=== PATIENT | male | born 1970 | race Caucasian/White ===

== ENCOUNTER 2022-02-04 09:47 | Outpatient (CLI) | payer MEDICARE, SELFPAY ==
--- NOTE | 2022-02-04 10:17 | ECG_ITS ---
Measurements Intervals Shirley Rate: 91 P: 31 TN: 202 QRS: 7 QRSD: 94 T: 40 QT: 343 QTc: 423 Interpretive Statements SINUS RHYTHM WITH SINUS ARRHYTHMIA INCOMPLETE RIGHT BUNDLE BRANCH BLOCK BASELINE ARTIFACT- II, III, AVR, AVL, AVF BORDERLINE ECG NO PREVIOUS ECG AVAILABLE FOR COMPARISON Electronically Signed On 02-04-2022 13:44:10 CDT by Micah Duran D.O.
[2022-02-04 10:52] LABS: Phenytoin Dilantin < 3 ug/mL (10-20)
== END 2022-02-04 09:48 | disposition home or self-care (01) ==
LOC: ANHSURGERY 09:58
PROVIDERS: Anesthesiology; PCP Internal Medicine; Visit Provider Neurological Surgery
DX: G40.909 Epilepsy, unspecified, not intractable, without status epilepticus (principal); I10 Essential (primary) hypertension; G89.4 Chronic pain syndrome; Z01.818 Encounter for other preprocedural examination; I45.10 Unspecified right bundle-branch block
CPT/HCPCS: 36415; 80185; 86850; 86900; 86901; 93005

== ENCOUNTER 2022-02-05 00:05 | Day surgery (SDC) | payer MEDICARE, SELFPAY ==
[2022-01-30 15:19] VITALS: BMI 27.3
--- NOTE | 2022-01-30 15:30 | PC.NURSE ---
Report to the Outpatient Waiting Room, entrance under the green pavilion located off [facility], at time 6:00 on date 02/05/22. OR Time: 7:30. Time changes happen often and if your time is changed the preop area will call you the afternoon before. - You and your visitor will be asked to self-screen and do not enter if you have any COVID symptoms. - Only one visitor and NO children visitors are allowed at this time. ONCE YOU ARE SETTLED IN YOUR ROOM FOR YOUR OVERNIGHT STAY, YOU MAY HAVE 2 VISITORS AT A TIME - The patient visitor is requested to leave or wait in car when not with patient due to restrictions. - A mask is required within the hospital. Patients may have clear liquids (water, carbonated beverages, clear teas, apple juice) until 3 hours prior to surgery (4:30) with a maximum of 20 ounces. - No food from midnight until time of surgery Take the following medications with a SIP of water the morning of surgery: DILANTIN, METOPROLOL Medications to discontinue per physician: PLAVIX Date to take last dose: CALL DR. DOWELL OFFICE TO ASK ABOUT STOPPING Please no make-up, nail chadian, hairspray, perfume, deodorant, or body powder the day of surgery. No jewelry (including any body piercings) or valuables the day of surgery, leave them at home. Please take a shower or bath the night before, or the morning of, surgery with an antibacterial soap. Wear comfortable, loose fitting clothing. - Jewelry must be removed prior to entering the operating room. Rings and piercings that are not removed may be cut off. - The hospital will not accept responsibility for valuables. - Please leave all valuables, including medications, at home the day of surgery. If you are going home after surgery, a licensed buggy driver must drive you home. - NO public transportation without another adult. - We recommend that an adult stay with you for 24 hours following discharge. - We also recommend that you do not drive, make important decision, drink alcoholic beverages, or take any drugs that were not prescribed by your health care provider for at least 24 hours after your discharge time. Follow any additional instructions given to you from your surgeon. If you or anyone in your household have experienced Covid symptoms in the past week, please notify your surgeon or the nurse liaison at the phone number below for possible testing. Telephone instructions given to PT - YEN PARSON and asked if any additional questions and then verbalized understanding. Patient advised to call surgeon office or pre surgery nurse liaison [phone] if any additional questions.
--- NOTE | 2022-02-04 11:30 | WPDANESEPPF ---
Anes - Initial Pre Proc Eval Procedure: Operation Date: 02/05/22 07:30 Proposed Procedures p Removal and Replacement Dorsal Column Stimulator Generator [employer] - Bert Dejesus MD Date/Time: 02/04/22 11:30 Surgeon: Bert Dejesus MD Pre Op Diagnosis: chronic pain syndrome, chronic leg pain Patient Data Age: 51 Gender: M Height: 1.73 m Weight: 81.65 kg Allergies Allergy/AdvReac Type Severity Reaction Status Date / Time No Known Allergies Allergy Verified 02/05/22 06:38 Home Medications Medication Instructions Recorded Confirmed Type atorvastatin 80 mg tablet 80 mg PO HS 01/30/22 02/05/22 History clopidogrel 75 mg tablet 75 mg PO DAILY 01/30/22 02/05/22 History esomeprazole magnesium 20 mg 20 mg PO BID 01/30/22 02/05/22 History capsule,delayed release (Nexium) metoprolol succinate 50 mg 50 mg PO DAILY 01/30/22 02/05/22 History tablet,extended release 24 hr phenytoin sodium extended 100 mg 100 mg PO QID 01/30/22 02/05/22 History capsule Patient hx anesthesia problems: none Family hx anesthesia problems: none Results Review: All pre-operative results and documents have been reviewed as part of the pre-operative evaluation. [facility] Past Medical History Medical History (Updated 02/04/22 @ 11:32 by Fabio Woods MD) Back pain CAD (coronary artery disease) HTN (hypertension) Hx of myocardial infarction Hyperlipidemia Migraine Seizure last 2017 Surgical History Surgical History (Updated 02/04/22 @ 11:32 by Fabio Woods MD) History of coronary artery stent placement Social History Social History Smoking packs per day: 1 Smoking cigarettes per day: 20.0 Years smoked: 10 Smoking pack-years: 10.00 Smoking status: Former smoker Tobacco type: cigarettes Smoking end date: 05/19/01 Alcohol intake: never Substance use: current Substance use type: marijuana Living arrangements: with family Spiritual care concerns: No Anes - Eval Final PreProcedure Day of Procedure 02/04/22 11:30 Patient weight: overweight Heart: regular rate and rhythm Lungs: clear to auscultation and normal air movement Airway: Mallampati scale class II Neurological: alert and oriented Last oral intake: >/= 8 hours ASA classification: III Emergent: no Anesthetic plan: proceed Anesthesia type and monitoring: general ETT Results Review: All pre-operative results and documents have been reviewed as part of the pre-operative evaluation. Informed Consent: The patient's anesthetic plan and its attendant risks and benefits were discussed with the patient/family/POA. Questions were solicited and answers provided to the satisfaction of the patient/family/POA.
[2022-02-05] VITALS (7 sets, daily range): BP systolic 119–137; BP diastolic 80–97; PULSE 59–92; RESP 14–19; TEMP 36.4–36.5; O2SAT 92–100
[2022-02-05] MEDS: LACTATED RINGERS 1,000 ML 30 ML IV CONT (07:08)
--- NOTE | 2022-02-05 07:36 | PM.IMHP ---
H&P: HPI History of Present Illness Date/Time: 02/05/22 07:36 Chief Complaint: Back and leg pain Narrative: Mr. Diana is a 51-year-old gentleman with a dorsal column stimulator that requires a battery change because of end of life. He has not changed appreciably since we last saw him. He does not report specific muscle group weakness or dermatomal numbness. He is not having bowel or bladder difficulty. Review of Systems Review of Systems: Patient denies shortness of breath, cough, fever, chills, nausea, vomiting, weight loss, weight gain, chest pain, dysuria. He has back and leg pain. His review of systems is otherwise negative on 12 systems except as noted above. [facility] Past Medical History Medical History Back pain CAD (coronary artery disease) HTN (hypertension) Hx of myocardial infarction Hyperlipidemia Migraine Seizure last 2017 Surgical History Surgical History History of coronary artery stent placement Social History Social History Smoking packs per day: 1 Smoking cigarettes per day: 20.0 Years smoked: 10 Smoking pack-years: 10.00 Smoking status: Former smoker Tobacco type: cigarettes Smoking end date: 05/19/01 Alcohol intake: never Substance use: current Substance use type: marijuana Living arrangements: with family Spiritual care concerns: No Meds Home Medications and Allergies Home Medications Medication Instructions Recorded Confirmed Type atorvastatin 80 mg tablet 80 mg PO HS 01/30/22 02/05/22 History clopidogrel 75 mg tablet 75 mg PO DAILY 01/30/22 02/05/22 History esomeprazole magnesium 20 mg 20 mg PO BID 01/30/22 02/05/22 History capsule,delayed release (Nexium) metoprolol succinate 50 mg 50 mg PO DAILY 01/30/22 02/05/22 History tablet,extended release 24 hr phenytoin sodium extended 100 mg 100 mg PO QID 01/30/22 02/05/22 History capsule Allergies Allergy/AdvReac Type Severity Reaction Status Date / Time No Known Allergies Allergy Verified 02/05/22 06:38 Vital Signs Vital Signs - 24 hr 02/05/22 07:14 Temperature 97.7 F Pulse Rate 92 Respiratory Rate 16 Blood Pressure 128/95 H Pulse Oximetry 99 Oxygen Delivery Room Air Exam Neuro: Other: Strength is normal the bilateral lower extremities to direct confrontation. Sensation is intact to light touch throughout the lower extremities. Clear to auscultation. Regular rate and rhythm Assessment and Plan Assessment and plan (1) Chronic back pain: Code(s): M54.9 - Dorsalgia, unspecified; G89.29 - Other chronic pain Status: Acute (2) Chronic leg pain: Code(s): M79.606 - Pain in leg, unspecified; G89.29 - Other chronic pain Status: Acute Plan Mr. Diana is a 51-year-old gentleman with back and leg pain with a dorsal column stimulator the requires a battery change. I described to him again that operation, its risks, potential benefits, the operative and postoperative course in detail and answered all his questions personally. He indicates understanding and elects to proceed with that operation.
--- NOTE | 2022-02-05 07:38 | WPDHPUPDATE1 ---
History and Physical Update Update Date/Time: 02/05/22 07:38 History and Physical has been reviewed, including an updated exam of the patient. There are NO changes in the patient's condition. Risks, benefits, and alternatives have been discussed and questions answered. Patient agrees to proceed with procedure.
[2022-02-05] MEDS: ceFAZolin 2 GM/D5W 50 ML 2 GM/50 ML BAG IVPB (07:46)
[2022-02-05] MEDS: LIDO 1%/EPINEPHRINE 1:100,000 20 ML VIAL 10 ML INFILTRATE (08:21)
[2022-02-05] MEDS: VANCOMYCIN HCL 1,000 MG VIAL 1000 MG TOPICAL (08:22)
--- NOTE | 2022-02-05 08:22 | W.PM.PROC2 ---
Procedure Note - Detailed Date of Procedure 02/05/22 Pre-op Diagnosis chronic pain syndrome, chronic leg pain Post-op Diagnosis Same Procedure Performed Removal and replacement of dorsal column stimulator generator Surgeon Bert Dejesus MD [employer]visor Sebastián Anesthesia General Indications Mr. Diana is a 51-year-old gentleman with chronic back and leg pain that responded dorsal column stimulation presents for removal and replacement of his generator which has reached end of life. Description of Procedure Mr. Diana was brought to the operating room in the supine position, was sedated, intubated and placed under general anesthesia in routine fashion. He was then turned into the prone position on a Mil frame. The operation his back was examined marked for incision prepped and draped in routine sterile fashion. Incision was marked over the previous incisions transversely above the right buttock and longitudinally in the midline in the thoracic spine. These areas were injected with 0.5% lidocaine with [id number] epinephrine. Intravenous antibiotics given prior to incision. Incision was made at the transverse buttock incision with a 10 blade scalpel. Bovie cautery was used to come through the soft tissue and discovered and removed the generator. The generator was removed from the wires using a small screwdriver for that purpose. A new generator was attached to the wires and sick and they were secured in position using the small screwdriver. Impedance testing was carried out to confirm good connectivity which was confirmed. The generator was then replaced in the pocket after copious irrigation with bacitracin irrigation along with excess wire coiled up underneath the device and vancomycin impregnated pellets. The wound was then closed in layered fashion with 3-0 Vicryl interrupted sutures in the dermis and a running 4-0 Monocryl subcuticular stitch in the skin was dressed Dermabond. The patient was then allowed to wake up in the operating room was taken to the recovery room in stable condition. There were no immediate complications of this operation. All counts were reported correct in the case. Blood loss was minimal. The patient was neurologically at his baseline postoperatively. Implants New dorsal column stimulator generator, [employer] Estimated Blood Loss 1 IV Fluids 500 Complications None Disposition PACU
[2022-02-05] MEDS: HEMOSTATIC MATRIX (SURGIFLO with THROMBIN) KIT 1 KIT XX (08:24)
[2022-02-05] MEDS: oxyCODONE HCL (*CRX) 5 MG TAB IR PO (09:49)
== END 2022-02-05 10:10 | disposition home or self-care (01) ==
PROVIDERS: PCP Internal Medicine; Visit Provider Neurological Surgery
PROC: (CPT 63685; principal; 2022-02-05 07:30)
DX: M54.9 Dorsalgia, unspecified (principal); M79.606 Pain in leg, unspecified; G89.4 Chronic pain syndrome; I25.10 Atherosclerotic heart disease of native coronary artery without angina pectoris; I10 Essential (primary) hypertension; I25.2 Old myocardial infarction; E78.5 Hyperlipidemia, unspecified; G40.909 Epilepsy, unspecified, not intractable, without status epilepticus; Z95.5 Presence of coronary angioplasty implant and graft; Z87.891 Personal history of nicotine dependence; Z79.02 Long term (current) use of antithrombotics/antiplatelets
CPT/HCPCS: 63685; 36415; 80185; 86850; 86900; 86901; 93005; A9270; J0690; J1100; J1170; J2250; J2704; J2710; J3010; J3370; J7120